=== PATIENT | male | born 1985 | race Caucasian/White ===

== ENCOUNTER 2024-09-24 17:30 | Emergency (ER) | payer OTHER, SELFPAY ==
[2024-09-24 17:46] VITALS: BP 147/94; PULSE 102; RESP 16; TEMP 36.9; O2SAT 100
--- NOTE | 2024-09-24 18:47 | ED_ITS ---
HPI - General Adult General Chief complaint: Eye Problems Stated complaint: Left Eye Injury Source: patient Mode of arrival: ambulatory Limitations: no limitations History of Present Illness HPI narrative: Patient presents for evaluation of left eye injury. He indicates this afternoon a metal rake bent backwards and hit him in left eye. Reports blurred vision, sensitivity to light, and tearing. Denies other visual disturbance. Denies any other injuries. He wears glasses but not contacts. He is not sure when his last tetanus was. Related Data Allergies Allergy/AdvReac Type Severity Reaction Status Date / Time No Known Allergies Allergy Verified 09/24/24 17:45 Review of Systems Review of Systems: CONSTITUTIONAL: Denies fever, chills, or sweats. EYES: Reports blurred vision, irritation, redness and tearing from the left eye. Reports photophobia. Denies other visual disturbance. ENT: Denies rhinorrhea, congestion, sore throat, or otalgia. CARDIOVASCULAR: Denies chest pain, palpitations, or edema. RESPIRATORY: Denies cough or dyspnea. GASTROINTESTINAL: Denies abdominal pain, nausea, vomiting, or diarrhea. GENITOURINARY: Denies dysuria or hematuria. SKIN: Denies rash or itching. MUSCULOSKELETAL: Denies back pain, joint pain, or myalgia. NEUROLOGIC: Denies headache, numbness, dizziness, or weakness. PSYCHIATRIC: Denies anxiety or depression. PMFSH Past Medical History Medical History No pertinent past medical history Surgical History Surgical History No pertinent past surgical history Family History Family History Mother Family history non-contributory Social History Social History Substance use: never Gender identity (if verbalized by the patient): Male Spiritual care concerns: No Exam Narrative: GENERAL: Well-appearing, well-nourished, and in no acute distress. HEAD: Normocephalic, atraumatic. EYES: PERRLA and EOMI. Left conjunctival injection and tearing. There is a linear area of dye uptake noted with fluorescein and Wood's lamp evaluation at the 1 to 5 o'clock position of the left eye ENT: Nares clear, no rhinorrhea or epistaxis. Mucous membranes moist. Oropharynx without tonsillar hypertrophy exudate or other lesions. Bilateral TMs pearly randolph nonbulging NECK: Supple. No adenopathy or masses. No carotid bruits or JVD CHEST: Clear to auscultation. No respiratory distress. No wheezes rales or rhonchi HEART: Regular rate and rhythm. No murmur heard. Normal peripheral pulses. ABDOMEN: Soft, nontender, nondistended, normal active bowel sounds. EXTREMITIES: Normal range of motion. No edema. SKIN: Warm, dry, no rash. NEURO: No focal deficits. Alert and oriented x3. PSYCH: Normal mood and affect. Course Course Emergency Course: This is a 39-year-old male who presented for evaluation of injury to left eye. Was updated on tetanus. He has evidence of a corneal abrasion. Will treat with erythromycin. Follow-up with primary provider. Go to the ER for worsening symptoms. Patient in agreement with plan of care. Level of Care: Express Care Visit Vital Signs Vital signs: Vital Signs Temperature 36.9 C 09/24/24 17:46 Pulse Rate 102 H 09/24/24 17:46 Respiratory Rate 16 09/24/24 17:46 Blood Pressure 147/94 H 09/24/24 17:46 Pulse Oximetry 100 09/24/24 17:46 Oxygen Delivery Room Air 09/24/24 17:46 Temperature 36.9 C 09/24/24 17:46 Pulse Rate 102 H 09/24/24 17:46 Respiratory Rate 16 09/24/24 17:46 Blood Pressure 147/94 H 09/24/24 17:46 Pulse Oximetry 100 09/24/24 17:46 Oxygen Delivery Room Air 09/24/24 17:46 Medical Decision Making Vital Signs Vital Signs: Vital Signs Temperature 36.9 C 09/24/24 17:46 Pulse Rate 102 H 09/24/24 17:46 Respiratory Rate 16 09/24/24 17:46 Blood Pressure 147/94 H 09/24/24 17:46 Pulse Oximetry 100 09/24/24 17:46 Oxygen Delivery Room Air 09/24/24 17:46 Temperature 36.9 C 09/24/24 17:46 Pulse Rate 102 H 09/24/24 17:46 Respiratory Rate 16 09/24/24 17:46 Blood Pressure 147/94 H 09/24/24 17:46 Pulse Oximetry 100 09/24/24 17:46 Oxygen Delivery Room Air 09/24/24 17:46 Discharge Plan Discharge Clinical Impression: Abrasion of cornea, left Patient Disposition: Home, Self-Care Condition: Stable Instructions: Antibiotic Form, Corneal Abrasion (ED) Patient Language: Wolof Prescriptions: New erythromycin 5 mg/gram (0.5 %) ointment 1 applic LEFT EYE 6XD 7 Days Qty: 3.5 0RF Follow-up/Referrals: Harms,Roberto Luna M.D. [Primary Care Provider] - Time of Disposition: 18:46
--- OUTSIDE RECORDS SUMMARY | 2024-09-24 18:51 | XMS_ITS | Referral Summary ---
Author Organization [facility] [place] [facility] Address [address] [place] [address] Care Team Providers Care Acid Treater Name Role Phone Roberto Edgar MD Primary Care Provider [phone] [phone] Encounters Date Type Department Care Team Description 08/19/2024 8:00 AM OIL CHANGE TECHNICIAN Office Visit [facility] [address] [place] [address] Roberto Edgar MD Lipid screening (Primary Dx); Scrotal cyst; Mild intermittent asthma, unspecified whether complicated; Annual physical exam; BMI 26.0-26.9,adult 08/12/2024 Telephone [facility] Accountable Care Organization [address] [place] [phone] Rosemarie Marroquin Successful Phone Call (Scheduling Braun Annual Exam) from Last 3 Months Allergies Active Allergy Reactions Criticality Noted Date Comments Other Other (See comments) Low 08/25/2021 Reaction: Medications omeprazole OTC (PriLOSEC OTC) 20 mg EC tablet Acti ve albuterol HFA (PROVENTIL HFA,VENTOLIN HFA,PROAIR HFA) 90 mcg/actuation inhaler Inhale 2 puffs every 4 (four) hours as needed for wheezing 1 each 2 3 Active amitriptyline (ELAVIL) 25 mg tablet Take 1 tablet (25 mg total) by mouth nightly as needed for sleep 30 tablet 2 3 Active Additional Information Patient not taking.Reported on 08/19/2024 escitalopram (LEXAPRO) 10 mg tabletIndicatio ns:Anxiety and depression Take 1 tablet (10 mg total) by mouth daily 90 tablet 4 4 Active Additional Information Patient not taking.Reported on 08/19/2024 Active Problems Problem Noted Date Diagnosed Date Annual physical exam 09/01/2024 Assessment & Plan (09/01/2024 6:45 AM OIL CHANGE TECHNICIAN): Focus of exam is preventative in nature. Reviewed immunizations, reviewed sun/skin cancer screening. NO indication for early colon cancer screening. Reviwed mood and stable at the present time. Lipid screening 09/01/2024 Assessment & Plan (09/01/2024 6:45 AM OIL CHANGE TECHNICIAN): Labwork ordered and pneding. BMI 26.0-26.9,adult 09/01/2024 Assessment & Plan (09/01/2024 6:45 AM OIL CHANGE TECHNICIAN): Not an active clinical issue. Scrotal cyst 08/01/2023 Assessment & Plan (09/01/2024 6:44 AM OIL CHANGE TECHNICIAN): Asymptomatic at present. COntinue f/u with Urology. Assessment & Plan (08/01/2023 2:37 PM OIL CHANGE TECHNICIAN): Managed by Urology. Testicular ultrasound 03/2023, plan to repeat in 6 months. Per urologist if no change will not require any additional follow-up. Anxiety and depression 08/01/2023 Assessment & Plan (08/01/2023 3:03 PM OIL CHANGE TECHNICIAN): Reviewed pharmacologic treatment options for management of anxiety including SSRI/SNRIs, and non-benzodiazepine anxiolytics. Will start prescription lexapro 10 mg daily. Reviewed medication and adverse effects. Encouraged patient to engage with counseling. Discussed benefits of cognitive behavioral therapy and establishing coping skills. Recommend healthy eating and regular exercise. Patient states that he would never kill himself from direct questioning today, discussed safety plan. Seek immediate medical attention if experiencing SI/HI. Will continue to monitor. Follow-up in 3 months Encounter for screening for lipid disorder 08/01 Assessment & Plan (08/01/2023 3:04 PM OIL CHANGE TECHNICIAN): Complete fasting labs prior to six-month follow-up Facial pain 04/08/2017 Malocclusion 04/08/2017 Inguinal hernia 10/28/2015 Overview (10/06/2016): Inguinal hernia Asthma 11/16/2013 Overview (10/05/2016): ASTHMA NOS Assessment & Plan (09/01/2024 6:44 AM OIL CHANGE TECHNICIAN): Prn use of rescue inhaler. No regular usage requiring controller inhaler. Gastroesophageal reflux disease 11/16/2013 Overview (10/07/2016): Esophageal reflux Resolved Problems Problem Noted Date Diagnosed Date Resolved Date Open fracture of angle of mandible 04/08/2017 09/01/2024 Immunizations Immunization Administration Dates Next Due DTP 01/25/1991, 7,01/17/1986,1985,0 1985 Hep B, Adolescent or Pediatric 08/29/1996,1995,01/30/1996 HiB 07/21/1987 Influenza, Unspecified 08/01/2023(Deferr ed: Patient Refused),04/02/2023(Deferred: Patient Refused),09/07/2022(Deferred: Patient Refused),04/02/2022(Deferred: Patient Refused),03/03/2022(Deferred: Patient Refused),09/28/2021(Deferred: Patient Refused),04/02/2021(Deferred: Patient Refused),04/06/2017 MMR 02/23/1993,10/20/1986 OPV 01/16/1987,01/17/1986,1985 ,1985 Td, adsorbed 01/17/2000 Tdap 02/24/2009 Varicella 01/30/1996 Social History Tobacco Use Types Packs/Day Years Used Date Smoking Tobacco: Former Cigarettes 0.4 20 0 01/31/2003 - 01/31/2023 Smokeless Tobacco: Former Tobacco Cessation:Counseling Given: Not Answered Comments:Smoking History Packs/day: 3 Cigarettes Alcohol Use Standard Drinks/Week Comments Yes 0 (1 standard drink = 0.6 oz pur e alcohol) Humiliation, Afraid, Rape, and Kick questionnair e Answer Date Recorded Within the last year, have y ou been afraid of your partner or ex-partner? No 09/07/2022 Within the last year, have y ou been humiliated or emotionally abused in other ways by your partner or ex-partner? No Within the last year, have y ou been kicked, hit, slapped, or otherwise physically hurt by your partner or ex-partner? No 09/07/2022 Within the last year, have y ou been raped or forced to have any kind of sexual activity by your partner or ex-partner? No 09/07/2022 Social Connection and Isolat ion Panel [NHANES] Answer Date Recorded In a typical week, how many times do you talk on the phone with family, friends, or neighbors? More than three times a week 09/07/2022 How often do you get togethe r with friends or relatives? More than three times a week 09/07/2022 How often do you attend [facility] or [facility] services? More than 4 times per year 09/07/2022 Do you belong to any clubs o r organizations such as nondenominational groups, unions, fraternal or athletic groups, or school groups? No 09/07/2022 How often do you attend meet ings of the clubs or organizations you belong to? Never 09/07/2022 Are you , , di vorced, , never , or living with a partner? Never 09/07/2022 AUDIT-C Answer Date Recorded Q1: How often do you have a drink containing alc ohol? Monthly or less 02/15/2023 Q2: How many drinks containi ng alcohol do you have on a typical day when you are drinking? 1 or 2 02/15/2023 Q3: How often do you have si x or more drinks on one occasion? Never 02/15/2023 Overall Financial Resource Strain (CARDIA) Answe r Date Recorded How hard is it for you to pa y for the very basics like food, housing, medical care, and heating? Not hard at all 09/07/2022 PHQ-2 Answer Date Recorded PHQ-2 Total Score (If total score is 3 or more points, staff should administer the PHQ-9) 0 08/19/2024 [facility] - Occupational Stress Questionnaire Answer Date Recorded Do you feel stress - tense, restless, nervous, or anxious, or unable to sleep at night because your mind is troubled all the time - these days? To some extent 09/07/2022 Exercise Vital Sign Answer Date Recorde d On average, how many days pe r week do you engage in moderate to strenuous exercise (like a brisk walk)? 7 days 09/07/2022 On average, how many minutes do you engage in exercise at this level? 60 min 09/07/2022 Hunger Vital Sign Answer Date Recorded Within the past 12 months, y ou worried that your food would run out before you got the money to buy more. Never true 09/08/19 23 Within the past 12 months, t he food you bought just didn't last and you didn't have money to get more. Never true 09/07/2022 PRAPARE - Transportation Answer Date Re corded In the past 12 months, has l ack of transportation kept you from medical appointments or from getting medications? No 01/2023 In the past 12 months, has l ack of transportation kept you from meetings, work, or from getting things needed for daily living? No 09/07/2022 Housing Stability Vital Sign Answer Aaron e Recorded In the last 12 months, was t here a time when you were not able to pay the mortgage or rent on time? No 09/07/2022 In the last 12 months, how many places have you lived? 1 09/07/2022 In the last 12 months, was t here a time when you did not have a steady place to sleep or slept in a long term (including now)? No 09/07/2022 Personal Safety Answer Date Recorded Have you ever been in or are you currently in a harmful physical or emotional relationship or is someone making you feel afraid or unsafe? Denies 02/13/2024 Sex and Gender Information Value Date Recorded Sex Assigned at Not on file Legal Sex Male 9:47 AM OIL CHANGE TECHNICIAN Gender Identity Not on file Sexual Orientation Not on file Last Filed Vital Signs Vital Sign Reading Time Taken Comments Blood Pressure 132/92 08/19/2024 8:05 AM OIL CHANGE TECHNICIAN Pulse 109 08/19/2024 8:05 AM OIL CHANGE TECHNICIAN Temperature 36.6 C (97.9 F) 08/19/2024 8:05 AM OIL CHANGE TECHNICIAN Respiratory Rate 18 08/19/2024 8:05 AM OIL CHANGE TECHNICIAN Oxygen Saturation 99% 08/19/2024 8:05 AM OIL CHANGE TECHNICIAN room air Inhaled Oxygen Concentration - - Weight 69.9 kg (154 lb) 08/19/2024 8:05 AM OIL CHANGE TECHNICIAN Height 162.6 cm (5' 4 ) 08/19/2024 8:05 AM OIL CHANGE TECHNICIAN Body Mass Index 26.43 08/19/2024 8:05 AM OIL CHANGE TECHNICIAN Plan of Treatment Not on file Insurance [facility] Care Teams Acid Treater Relationship Specialty Start Date End Date Roberto Edgar MD [address] [place] [id number] PCP - General 04/14/17
--- OUTSIDE RECORDS SUMMARY | 2024-09-24 18:51 | XMS_ITS | Clinical Summary ---
Author Organization [facility] Address [address] [place] [address] Phone Care Team Providers Care Mid Wife Name Role Phone Unavailable Unavailable Unavailable Reason for Visit and Chief Complaint POST OP VISIT Plan of Treatment No Plan of Treatment Recorded Assessments Includes: Assessments from this encounter No Assessments Recorded Medical Equipment - Implanted Devices Includes: Current Devices No Medical Equipment Recorded Medications Administered Includes: Administered Medications from this encounter No Administered Medications Recorded Results Includes: Results discussed during this encounter No Results Recorded For Specified Dates History of Present Illness Includes: History of Present Illness from this encounter No History of Present Illness Recorded Social History No Social History Recorded - Smoking Status Unknown Medical History Includes: Medical History addressed during this encounter No Medical History Recorded Family History Includes: Family History addressed during this encounter No Family History Recorded Review of Systems Includes: Review of Systems from this encounter No Review of Systems Recorded Mental Status Includes: Mental Status from this encounter No Mental Status Recorded Functional Status Includes: Functional Status from this encounter No Functional Status Recorded Physical Exam Includes: Physical Exam from this encounter No Physical Exam Recorded Encounters Encounter Provider Location Date Check-In Time Check- Out Time Diagnosis POST OP VISIT [facility] 7 1:30PM 11:59PM Clinical Notes Includes: Clinical Notes from this encounter No Clinical Notes Recorded
--- OUTSIDE RECORDS SUMMARY | 2024-09-24 18:51 | XMS_ITS | Clinical Summary ---
Author Organization [facility] Address [address] [place] [address] Phone Care Team Providers Care Mill Operator Helper Name Role Phone Unavailable Unavailable Unavailable Reason [...] OP VISIT [facility] 7 3:00PM 11:59PM Clinical Notes Includes: Clinical Notes from this encounter No Clinical Notes Recorded
--- OUTSIDE RECORDS SUMMARY | 2024-09-24 18:51 | XMS_ITS | Clinical Summary ---
Author Organization [facility] [place] [facility] Address [address] [place] [address] Care Team Providers Care Lace Paper Machine Operator Name Role Phone Roberto Edgar MD Primary Care Provider [phone] [phone] Allergies Active Allergy Reactions Criticality Noted Date [...] 09/01/2024 Assessment & Plan (09/01/2024 6:45 AM GRAPHIC TECHNICIAN): Focus of exam is preventative in nature. Reviewed immunizations, reviewed sun/skin cancer screening. NO indication for early colon cancer screening. Reviwed mood and stable at the present time. Lipid screening 09/01/2024 Assessment & Plan (09/01/2024 6:45 AM GRAPHIC TECHNICIAN): Labwork ordered and pneding. BMI 26.0-26.9,adult 09/01/2024 Assessment & Plan (09/01/2024 6:45 AM GRAPHIC TECHNICIAN): Not an active clinical issue. Scrotal cyst 08/01/2023 Assessment & Plan (09/01/2024 6:44 AM GRAPHIC TECHNICIAN): Asymptomatic at present. COntinue f/u with Urology. Assessment & Plan (08/01/2023 2:37 PM GRAPHIC TECHNICIAN): Managed by Urology. Testicular ultrasound 03/2023, plan to repeat in 6 months. Per urologist if no change will not require any additional follow-up. Anxiety and depression 08/01/2023 Assessment & Plan (08/01/2023 3:03 PM GRAPHIC TECHNICIAN): Reviewed pharmacologic treatment options for management [...] 08/01 Assessment & Plan (08/01/2023 3:04 PM GRAPHIC TECHNICIAN): Complete fasting labs prior to six-month follow-up Facial pain 04/08/2017 Malocclusion 04/08/2017 Inguinal hernia 10/28/2015 Overview (10/06/2016): Inguinal hernia Asthma 11/16/2013 Overview (10/05/2016): ASTHMA NOS Assessment & Plan (09/01/2024 6:44 AM GRAPHIC TECHNICIAN): Prn use of rescue inhaler. No regular usage requiring controller inhaler. Gastroesophageal reflux disease 11/16/2013 Overview (10/07/2016): Esophageal reflux Resolved Problems Problem Noted Date Diagnosed Date Resolved Date Open fracture of angle of mandible 04/08/2017 09/01/2024 Encounters Date Type Department Care Team Description 08/19/2024 8:00 AM GRAPHIC TECHNICIAN Office Visit [facility] [address] [place] [id number] Roberto Edgar MD Lipid screening (Primary Dx); Scrotal cyst; Mild intermittent asthma, unspecified whether complicated; Annual physical exam; BMI 26.0-26.9,adult 08/12/[address] [address] Rosemarie Marroquin Successful Phone Call (Scheduling Braun Annual Exam) from Last 3 Months Immunizations Immunization Administration Dates Next Due DTP 01/25/1991, 7,01/17/1986,1985,0 1985 Hep B, Adolescent or Pediatric 08/29/1996,1995,01/30/1996 HiB 07/21/1987 Influenza, Unspecified 08/01/2023(Deferr ed: Patient Refused),04/02/2023(Deferred: Patient Refused),09/07/2022(Deferred: Patient Refused),04/02/2022(Deferred: Patient Refused),03/03/2022(Deferred: Patient Refused),09/28/2021(Deferred: Patient Refused),04/02/2021(Deferred: Patient Refused),04/06/2017 MMR 02/23/1993,10/20/1986 OPV 01/16/1987,01/17/1986,1985 ,1985 Td, adsorbed 01/17/2000 Tdap 02/24/2009 Varicella 01/30/1996 Surgical History Surgery Date Site/Laterality Comments OTHER SURGICAL HISTORY repair crossed eye NASAL SEPTUM SURGERY Deviated septum repair OTHER SURGICAL HISTORY TEP endoscopic bilateral inguinal hernia MANDIBLE SURGERY Medical History Medical History Date Comments Gastroesophageal reflux disease GERD Asthma Asthma; Comments : [facility] 06/10/2015 - Hx Other Medical multiple fractu res; Comments: [facility] 06/10/2015 -; Outcome: writst x 2 , nose, orbital floor Family History Medical History Relation Name Comments Coronary artery disease Father Tigist nary artery disease; Other Mother healthy; Thyroid disease Sister Thyroid diso rder; Relation Name Status Comments Father Alive Mother Alive Sister Social History Tobacco Use Types Packs/Day Years [...] week 09/07/2022 How often do you attend chur or quaker services? More than 4 times per year 09/07/2022 Do you belong to any clubs o r organizations such as episcopal groups, unions, fraternal or athletic groups, or [...] staff should administer the PHQ-9) 0 08/19/2024 [facility] - Occupational Stress Questionnaire Answer Date Recorded [...] place to sleep or slept in a residential (including now)? No 09/07/2022 Personal Safety Answer Date Recorded Have you ever been in or are you currently in a harmful physical or emotional relationship or is someone making you feel afraid or unsafe? Denies 02/13/2024 Sex and Gender Information Value Date Recorded Sex Assigned at Not on file Legal Sex Male 9:47 AM GRAPHIC TECHNICIAN Gender Identity Not on file Sexual Orientation Not on file Obstetrics History Last Filed Vital Signs Vital Sign Reading Time Taken Comments Blood Pressure 132/92 08/19/2024 8:05 AM GRAPHIC TECHNICIAN Pulse 109 08/19/2024 8:05 AM GRAPHIC TECHNICIAN Temperature 36.6 C (97.9 F) 08/19/2024 8:05 AM GRAPHIC TECHNICIAN Respiratory Rate 18 08/19/2024 8:05 AM GRAPHIC TECHNICIAN Oxygen Saturation 99% 08/19/2024 8:05 AM GRAPHIC TECHNICIAN room air Inhaled Oxygen Concentration - - Weight 69.9 kg (154 lb) 08/19/2024 8:05 AM GRAPHIC TECHNICIAN Height 162.6 cm (5' 4 ) 08/19/2024 8:05 AM GRAPHIC TECHNICIAN Body Mass Index 26.43 08/19/2024 8:05 AM GRAPHIC TECHNICIAN Plan of Treatment Health Maintenance Due Date Last Done Comments Hepatitis C Screening 1985 Varicella Vaccines (2 of 2 - 2-dose childhood series) 04/23/1996 01/30/1996 Pneumococcal vaccine <65 (1 of 2 - PCV) 2004 DTaP/Tdap/Td Vaccine (7 - Td or Tdap) 02/24/2019 02/24/2009, 01/17/2000, 01/25/1991, Additional history exists Influenza Vaccine (#1) 2024 04/06/2017 Depression Screening 08/19/2025 08/19/2024, 08/01/2023, 02/15/2023, Additional history exists Regular Well Visit/Exam 18-64 08/19/2025 08/19/2024, 08/25/2021 Hepatitis B Screening Completed 08/29/1996 , 03/05/1996, 01/30/1996 HPV Vaccines Aged Out No longer eligi ble based on patient's age to complete this topic Insurance [facility] Care Teams Lace Paper Machine Operator Relationship Specialty Start Date End Date Roberto Edgar MD [address] [place] [address] PCP - General 04/14/17
--- OUTSIDE RECORDS SUMMARY | 2024-09-24 18:51 | XMS_ITS | Clinical Summary ---
Author Organization [facility] Address [address] [place] [address] Phone Care Team Providers Care Digital Forensic Examiner Name Role Phone Unavailable Unavailable Unavailable Reason for Visit and Chief Complaint NEW PATIENT VISIT Plan of Treatment No Plan of [...] Date Check-In Time Check- Out Time Diagnosis NEW PATIENT VISIT [facility] 7 2:30PM 11:59PM Clinical Notes Includes: Clinical Notes from this encounter No Clinical Notes Recorded
--- OUTSIDE RECORDS SUMMARY | 2024-09-24 18:51 | XMS_ITS | Clinical Summary ---
Author Organization [facility] Address [address] [place] [address] Phone Care Team Providers Care Toll Bridge Operator Name Role Phone Unavailable Unavailable Unavailable Reason [...] OP VISIT [facility] 7 2:30PM 11:59PM Clinical Notes Includes: Clinical Notes from this encounter No Clinical Notes Recorded
--- OUTSIDE RECORDS SUMMARY | 2024-09-24 18:51 | XMS_ITS ---
Care Plan - [facility] Created on: September 24, 2024 BECKY ISBELL : 1985 Sex: Male Author Organization [facility] Address [address] [place] [address] Phone Care Team Providers Care Instrument Inspector Name Role Phone Unavailable Unavailable Unavailable
--- OUTSIDE RECORDS SUMMARY | 2024-09-24 18:51 | XMS_ITS ---
Author Organization [facility] Address [address] [place] [address] Phone Care Team Providers Care Tooth Polisher Name Role Phone Unavailable Unavailable Unavailable Plan of Treatment No Plan of Treatment Recorded Assessments Includes: Assessments for all patient encounters No Assessments Recorded Medical Equipment - Implanted Devices Includes: Current and historical Devices No Medical Equipment Recorded Medications Administered Includes: Administered Medications in patient's chart No Administered Medications Recorded Results Includes: Results from 09/25/2023 through 09/24/2024 No Results Recorded For Specified Dates History of Present Illness History of Present Illness not supported for this document type No History of Present Illness Recorded Social History No Social History Recorded - Smoking Status Unknown Medical History Includes: Medical History in patient's chart No Medical History Recorded Family History Includes: Family History in patient's chart No Family History Recorded Review of Systems Review of Systems not supported for this document type No Review of Systems Recorded Mental Status No Mental Status Recorded Functional Status No Functional Status Recorded Physical Exam Physical Exam not supported for this document type No Physical Exam Recorded Clinical Notes Includes: Signed Clinical Notes starting from 07/22/2022 No Clinical Notes Recorded
[2024-09-24] MEDS: TETANUS,DIPHTHERIA,AC PERTUSSIS ADULT (0.5 ML) BOOSTRIX IM (18:52)
--- OUTSIDE RECORDS SUMMARY | 2024-09-24 18:52 | XMS_ITS | Clinical Summary ---
Author Organization [facility] Address [address] [place] [address] Phone Care Team Providers Care Color Blender Name Role Phone Unavailable Unavailable Unavailable Reason [...]
--- OUTSIDE RECORDS SUMMARY | 2024-09-24 18:52 | XMS_ITS | Clinical Summary ---
Author Organization [facility] Address [address] [place] [address] Phone Care Team Providers Care Configuration Engineer Name Role Phone Unavailable Unavailable Unavailable Reason [...]
--- OUTSIDE RECORDS SUMMARY | 2024-09-24 18:52 | XMS_ITS | Clinical Summary ---
Author Organization [facility] Address [address] [place] [address] Phone Care Team Providers Care Biochemistry Teacher Name Role Phone Unavailable Unavailable Unavailable Reason [...]
--- OUTSIDE RECORDS SUMMARY | 2024-09-24 18:52 | XMS_ITS | Clinical Summary ---
Author Organization [facility] Address [address] [place] [address] Phone Care Team Providers Care Clinical Social Worker Name Role Phone Unavailable Unavailable Unavailable Reason [...]
--- OUTSIDE RECORDS SUMMARY | 2024-09-24 18:52 | XMS_ITS ---
Care Plan - [facility] Created on: September 24, 2024 BECKY ISBELL : 1985 Sex: Male Author Organization [facility] Address [address] [place] [address] Phone Care Team Providers Care Trip Follower Name Role Phone Unavailable Unavailable Unavailable
--- OUTSIDE RECORDS SUMMARY | 2024-09-24 18:52 | XMS_ITS ---
Author Organization [facility] Address [address] [place] [address] Phone Care Team Providers Care Tile Setter Apprentice Name Role Phone Unavailable Unavailable Unavailable Plan [...]
== END 2024-09-24 18:59 | disposition home or self-care (01) ==
PROVIDERS: Emergency Provider Nurse Practitioner; PCP Family Medicine
DX: S05.02XA Injury of conjunctiva and corneal abrasion without foreign body, left eye, initial encounter (principal); W22.8XXA Striking against or struck by other objects, initial encounter; Z23 Encounter for immunization
CPT/HCPCS: 90471; 90715; 99213; A9270; G0463